=== PATIENT | female | born 1990 | race Caucasian/White ===

== ENCOUNTER 2017-01-11 02:00 | Emergency (ER) | payer OTHER ==
[2017-01-12] MEDS ORDERED: SINGULAIR10 MG PO (15:03)
[2017-01-12] MEDS ORDERED: T:SLIM1 EACH INJ (15:03)
[2017-01-12] MEDS ORDERED: ZOFRAN4 MG PO (15:05)
== END 2017-01-11 05:44 | disposition home or self-care (01) ==
LOC: ER 02:00
DX: R10.12 Left upper quadrant pain (principal); E10.9 Type 1 diabetes mellitus without complications; Z90.89 Acquired absence of other organs; Z79.4 Long term (current) use of insulin; Z79.899 Other long term (current) drug therapy
CPT/HCPCS: 36415; 96361; 96374; 96375; 96376

== ENCOUNTER 2017-01-11 18:40 | Observation (INO) | payer OTHER ==
[2017-01-12] MEDS ORDERED: SINGULAIR10 MG PO (15:03)
[2017-01-12] MEDS ORDERED: T:SLIM1 EACH INJ (15:03)
[2017-01-12] MEDS ORDERED: ZOFRAN4 MG PO (15:05)
== END 2017-01-12 18:10 | disposition home or self-care (01) ==
LOC: ER 18:40 → MED 23:12
PROVIDERS: ADMIT Internal Medicine
DX: R10.9 Unspecified abdominal pain (principal); E10.9 Type 1 diabetes mellitus without complications; Z79.899 Other long term (current) drug therapy; Z90.89 Acquired absence of other organs
CPT/HCPCS: 36415; 96361; 96374; 96375; 96376; G0378